=== PATIENT | female | born 1995 | race Two or more races ===

== ENCOUNTER 2017-02-03 14:52 | Emergency (ER) | payer OTHER ==
[~2017-02-03 14:52] MED LIST: BENTYL20 MG PO; NO MEDICATIONS; ZOFRAN ODT4 MG PO; ZOFRAN ODT4 MG/UDTAB PO
== END 2017-02-03 14:59 | disposition home or self-care (01) ==
LOC: SED 14:52
DX: S61.102A Unspecified open wound of left thumb with damage to nail, initial encounter (principal); X58.XXXA Exposure to other specified factors, initial encounter; Y92.009 Unspecified place in unspecified non-institutional (private) residence as the place of occurrence of the external cause
CPT/HCPCS: 99283